=== PATIENT | male | born 1970 | race Caucasian/White ===

== ENCOUNTER 2017-05-01 12:31 | Emergency (ER) | payer BC, OTHER ==
--- NOTE | 2017-05-01 12:35 | UC ---
Ear Complaint HPI - HPI Summary HPI Summary: 46 year old male presents with right ear pain/erythema/swelling. - History of Current Complaint Stated Complaint: RIGHT EAR SKIN COMPLAINT Time Seen by Provider: 05/01/17 12:35 Hx Obtained From: Patient Onset/Duration: Sudden Onset Severity Initially: Moderate Severity Currently: Moderate Pain Scale Used: 0-10 Numeric - 5 - Allergies/Home Medications Allergies/Adverse Reactions: Allergies Allergy/AdvReac Type Severity Reaction Status Date / Time No Known Allergies Allergy Verified 05/01/17 12:46 Home Medications: Home Medications Sulfamethox/Trimethoprim SS* [Bactrim SS 400/80 TAB*] 1 tab PO BID 05/01/17 [ History Confirmed 05/01/17] PMH/Surg Hx/FS Hx/Imm Hx Previously Healthy: Yes Review of Systems Constitutional: Negative Skin: Negative Eyes: Negative ENT: Ear Ache Respiratory: Negative Cardiovascular: Negative Gastrointestinal: Negative Genitourinary: Negative Motor: Negative Neurovascular: Negative Musculoskeletal: Negative Neurological: Negative Psychological: Negative Is Patient Immunocompromised?: Yes All Other Systems Reviewed And Are Negative: Yes Physical Exam Triage Information Reviewed: Yes Vital Signs Reviewed: Yes Eye Exam: Normal ENT: Positive: Other: - right ear erythema/pain/swelling Dental Exam: Normal Neck exam: Normal Neck: Positive: 1 Respiratory Exam: Normal Cardiovascular Exam: Normal Abdominal Exam: Normal Musculoskeletal Exam: Normal Neurological Exam: Normal Psychological Exam: Normal Skin Exam: Normal Ear Complaint Course/Dx - Differential Dx/Diagnosis Provider Diagnoses: right ear arythema/pain/swelling. right otitis externa Discharge - Discharge Plan Condition: Stable Disposition: HOME Prescriptions: Amoxicillin/Clavulanate TAB* [Augmentin TAB 875*] 875 mg PO BID #20 tab Neomyc/Polym/HC 1% OTIC SUSP* [Cortisporin Otic Susp 1%*] 4 drop RIGHT EAR QID # 1 btl predniSONE TAB* [Deltasone TAB*] 40 mg PO DAILY #10 tab Patient Education Materials: Earache (ED) Referrals: Tristin Philippe MD [Medical Doctor] - Ramon ARGUETAP,Nuzhat [Nurse Practitioner] -
[2017-05-01 12:47] VITALS: BP 128/74
== END 2017-05-01 13:05 | disposition home or self-care (01) ==
LOC: UCCORT 12:31
DX: H60.91 Unspecified otitis externa, right ear (principal)
CPT/HCPCS: 99202; G0463

== ENCOUNTER 2018-05-31 09:39 | Emergency (ER) | payer OTHER ==
[2018-05-31 09:53] VITALS: BP 152/81
--- NOTE | 2018-05-31 10:29 | UC ---
Back Pain HPI - HPI Summary HPI Summary: 47-year-old male presents with 10 day history of right lower back pain that radiates to the right buttocks and down the right leg to his foot. Denies injury. Describes pain as sharp and shooting. He has seen his chiropractor 3 with some temporary relief of symptoms. He has intermittently taken ibuprofen 800 mg with some mild relief as well. States pain worsens with sitting, moving , and ambulating. Improves with standing and bending over. Reports some intermittent numbness and tingling in buttocks and upper leg. Denies fever, chills, back or flank pain, dysuria, frequency, urgency, abdominal pain, nausea , vomiting, extremity weakness, loss of bowel or bladder control. - History of Current Complaint Chief Complaint: UCBackPain Stated Complaint: BACK PAIN Time Seen by Provider: 05/31/18 10:06 Hx Obtained From: Patient Onset/Duration: Gradual Onset, Lasting Days - 10 Timing: Constant Severity Currently: Moderate Pain Intensity: 7 Back Pain: Is Discrete @ - right lower back, Radiates To - right buttocks/leg Character: Sharp Aggravating Factor(s): Movement, Lifting, Walking, Other - sitting Alleviating Factor(s): Position - standing, bending over, OTC Meds, Other - chiropractor Associated Signs And Symptoms: Positive: Numbness, Tingling. Negative: Swelling , Redness, Bruising, Fever, Weakness, Abdominal Pain, Flank Pain, Bladder Incontinence, Bowel Incontinence - Allergies/Home Medications Allergies/Adverse Reactions: Allergies Allergy/AdvReac Type Severity Reaction Status Date / Time No Known Allergies Allergy Verified 05/01/17 12:46 PMH/Surg Hx/FS Hx/Imm Hx Previously Healthy: Yes - Denies significant PMH - Surgical History Surgical History: Yes Surgery Procedure, Year, and Place: 2 hernia repair - Family History Family History: Noncontributory - Social History Occupation: Employed Full-time Lives: With Family Alcohol Use: None Substance Use Type: None Smoking Status (MU): Heavy Every Day Tobacco Smoker Type: Cigarettes Amount Used/How Often: 1 ppd Have You Smoked in the Last Year: Yes Household Exposure Type: Cigarettes - Immunization History Most Recent Influenza Vaccination: no Review of Systems Constitutional: Negative Skin: Negative Respiratory: Negative Cardiovascular: Negative Gastrointestinal: Negative Genitourinary: Negative Motor: Negative Musculoskeletal: Other: - See HPI Neurological: Numbness - See HPI Is Patient Immunocompromised?: No All Other Systems Reviewed And Are Negative: Yes Physical Exam Triage Information Reviewed: Yes Appearance: Well-Appearing, Well-Nourished, Pain Distress - Mild discomfort. Standing with notable difficulty to find comfortable position. Vital Signs: Initial Vital Signs Temp 97.8 F 05/31/18 09:50 Pulse 67 05/31/18 09:50 Resp 14 05/31/18 09:50 BP 152/81 05/31/18 09:50 Pulse Ox 98 05/31/18 09:50 Respiratory: Positive: Lungs clear, Normal breath sounds, No respiratory distress Cardiovascular: Positive: RRR, No Murmur Musculoskeletal: Positive: Strength Intact, ROM Intact, Other: - Mild soft tissue tenderness to right lumbar back. No spinous process tenderness. Normal strength and muslce tone to lower extremities. Gait steady. Neurological: Positive: Alert, Other: - Sensation intact distally. Skin Exam: Normal Back Pain Course/Dx - Course Course Of Treatment: 47 year old male with 10 day history of right lower back pain radiating to right lower leg. Afebrile. Exam unremarkable except for some mild soft tissue tenderness to right lumbar back. History consistent with sciatica. Recommend conservative treatment with NSAIDs, muscle relaxant, and heat therapy. He is to follow up with PCP in 7 days if symptoms persist. Warning symptoms were reviewed. Verbalizes understanding and agrees with POC. - Differential Dx/Diagnosis Differential Diagnosis/HQI/PQRI: Herniated Disc, Strain Provider Diagnoses: Sciatica right side Discharge - Sign-Out/Discharge Documenting (check all that apply): Patient Departure All imaging exams completed and their final reports reviewed: No Studies - Discharge Plan Condition: Stable Disposition: HOME Prescriptions: Cyclobenzaprine HCl 10 mg PO Q8HR PRN #15 tablet PRN Reason: Spasms Naproxen [Naproxen 500 mg tab] 500 mg PO Q12HR #30 tablet Patient Education Materials: Sciatica (ED) Forms: *Work Release Referrals: Vicente Nix [Primary Care Provider] - 7 Days (If no improvement.) Additional Instructions: Take naproxen 1 tab every 12 hours with food for next 7 days. After 7 days you may take every 12 hours as needed for pain. Use cyclobenzaprine (Flexeril) 1 tab every 8 hours as needed for severe pain or spasm. Apply warm moist heat to the affected area for 15-20 minutes 4 times a day to help relax the muscles and ease pain. Follow up with your primary care provider in 7 days if symptoms persist. Seek immediate medical attention in the emergency room if you develop fever greater than 100.5 F, have worsening of pain despite taking pain medication, develop weakness of the leg(s), have difficulty ambulating, lose control of your bowel or bladder, or have any worsening of symptoms. - Billing Disposition and Condition Condition: STABLE Disposition: Home
== END 2018-05-31 10:41 | disposition home or self-care (01) ==
LOC: UCCORT 09:39
DX: M54.41 Lumbago with sciatica, right side (principal); F17.210 Nicotine dependence, cigarettes, uncomplicated
CPT/HCPCS: 99212; G0463